=== PATIENT | female | born 1955 | race Two or more races ===

== ENCOUNTER 2024-11-19 14:32 | Outpatient (REF) | payer OTHER, SELFPAY ==
--- OUTSIDE RECORDS SUMMARY | 2024-11-19 15:44 | XMS_ITS | Data Portability ---
Author Organization [facility] Address [address] [place] [id number] Care Team Providers Care Point Of Care Specialist Name Role Phone HIM CCA OTHER Assessment Encounter Date Assessment Date Assessment LastModified by Organization Details LastModified Time 11/30/2023 11/30/2023 three prescriptions/an ti hypertensives not taken for 2-3 days vomited a few times RUQ pain, not acute intermittend headaches, an episode of dizziness on Sunday no nausea today, vomited last night at midnight anti-hypertensiv es losartan 25mg metoprolol 12.5mg once a day HCZ 25mg [email or web address] Not available 11/30/2023 12:45:57 02/29/2024 02/29/2024 As noted, we were called to see this patient regarding concerns of high blood pressure. Evaluation in the field was performed by my psychology technician colleague, as noted above, I provided real-time direction and supervision for this visit. The evaluation revealed improved blood pressure. Impression: 68yo/f with multiple medical problems as above including HTN on multiple agents, recently discharged from hospital after knee fracture, referred for evaluation due to elevated BP today. Seen by medic in home, patient and family report that patient had elevated BP reading today, reportedly 180/100 prior to receiving her morning BP medication. Was given home BP medication, medic visit activated for recheck. For medic in home patient is awake, alert, in no distress. Home with family. They state patient is in her usual state of health. States she's perfect . Patient had mild headache earlier today that is currently improved. No associated neurologic symptoms of numbness/weaknes s/paresthesias, vision changes, speech changes. No associated chest pain, dyspnea, abdominal pain, fevers. No other systemic symptoms of illness at this time. They deny other ROS. Patient and family not BP is improved at this time, 168/80 for medic in home. They feel patient is safe to remain at home and feel comfortable continuing to observe symptoms and reach out immediately with any acute worsening or change in symptoms. Plan: Continued monitoring at home with family Primary care, consider home BP cuff and monitoring Disposition: We discussed the diagnostic uncertainty of home visits and the risk associated with this. In this case, the patient and I felt this to be an acceptable and reasonable amount of risk given the benefit of avoiding an ED visit. We discussed the need to seek care urgently/emergen tly in the setting of any new or worsening serious symptoms, particularly any acute worsening or change in symptoms. [email or web address] Not available 02/29/2024 13:33:13 Plan of Treatment Reminders Order Date Submit Date Provider Last Modified By Organization Details Last Modified Time Details Appointments None recorded. Lab None recorded. Referral None recorded. Procedures None recorded. Surgeries None recorded. Imaging None recorded. Medication Orders losartan 25 mg tablet 2023 024 [place] [facility][id number], [address], [place], [id number], 4 12:46:02 hydrochloro thiazide 25 mg tablet 2023 024 [place] [facility][id number], [address], [place], [id number], 4 12:46:04 metoprolol tartrate 25 mg tablet 2023 024 [place] [facility][id number], [address], [place], [id number], 12:46:03 Patient TargetsNo targets recorded. Patient InstructionsNo instructions recorded. Reason for Referral None Reported. Medical Equipment None Reported. Allergies Allergen ID Allergen Name Allergen Category Reaction Reaction Severity Criticality Documentation Date Start Date Code Code System Note Provider Name and Address Organization Details Recorded Time 9685 Product containin g penicilli n (product) medicatio n Not available Not available Not available 05/13/2024 27312 8001 SNOMED Not Available [facility] - production 03:37:31 Medications Name Sig Start Date Stop Date Status Note LastModified by Organization Details LastModified Time delivery fee active Not Available Not Available Not Available celecoxib 200 mg capsule active Not Available Not Available N ot Available latanoprost 0.005 % eye drops active Not Available Not Available Not Available trazodone 50 mg tablet active Not Available Not Available Not Available cefpodoxime 100 mg tablet TAKE 1 TABLET BY MOUTH TWICE DAILY active Not Available Not Available No t Available FreeStyle Lancets 28 gauge active Not Available Not Available Not Available ondansetron HCl 4 mg tablet active Not Available Not Available Not Available melatonin 3 mg tablet active Not Available Not Available Not Available acetaminophen 300 mg-codeine 30 mg tablet active Not Available Not Available Not Available aspirin 81 mg tablet,delayed release active Not Available Not Available Not Available losartan 100 mg-hydrochlorot hiazide 25 mg tablet active Not Available Not Available Not Available prednisolone acetate 1 % eye drops,suspensio n active Not Available Not Available Not Available propranolol ER 80 mg capsule,24 hr,extended release active Not Available Not Available Not Available losartan 25 mg tablet Take 1 tablet every day by oral route for 5 days. active Not Available Not Available No t Available omeprazole 20 mg capsule,delayed release active Not Available Not Available Not Available dorzolamide 22.3 mg-timolol 6.8 mg/mL eye drops active Not Available Not Available Not Available montelukast 10 mg tablet active Not Available Not Available No t Available bisacodyl 5 mg tablet,delayed release active Not Available Not Available Not Available hydrochlorothia zide 25 mg tablet Take 1 tablet every day by oral route for 5 days. active Not Available Not Available No t Available loratadine 10 mg tablet active Not Available Not Available No t Available Vitamin D3 25 mcg (1,000 unit) capsule active Not Available Not Availabl e Not Available Novolog FlexPen U-100 Insulin aspart 100 unit/mL (3 mL) subcutaneous active Not Available Not Available Not Available metoprolol tartrate 25 mg tablet Take 0.5 tablets every day by oral route for 5 days. active Not Available Not Available No t Available duloxetine 30 mg capsule,delayed release active Not Available Not Available Not Available Levemir FlexPen 100 unit/mL (3 mL) solution subcutaneous insulin pen active Not Available Not Available Not Available cholecalciferol (vitamin D3) 25 mcg (1,000 unit) tablet active Not Available Not Available Not Available FreeStyle Lite Strips active Not Available Not Available Not Available Humalog KwikPen (U-100) Insulin 100 unit/mL subcutaneous active Not Available Not Available Not Available GaviLyte-G 236 gram-22.74 gram-6.74 gram-5.86 gram oral solution active Not Available Not Availabl e Not Available One Daily Multivitamins with Minerals 4.5 mg iron tablet active Not Available Not Available Not Available UltiCare Pen Needle 32 gauge x active Not Available Not Available Not Available Trulicity 1.5 mg/0.5 mL subcutaneous pen injector active Not Available Not Available Not Available Mounjaro 2.5 mg/0.5 mL subcutaneous pen injector active Not Available Not Available Not Available FreeStyle Rafita 3 Sensor device active Not Available Not Availa ble Not Available FreeStyle Rafita 3 [place] active Not Available Not Available Not Available Vitals Date Recorded Oxygen saturation Oxygen saturation in Arterial blood by Pulse oximetry Body temperature Heart rate Respiratory rate Systolic blood pressure Diastolic blood pressure Provider Name and Address Organization Details Last Updated DateTime 4 99 % 99 % 98 [degF] 79 /min 16 /min 200 mm[Hg] 100 mm[Hg] Not Available [employer] 4 13:42:16 Date Recorded Oxygen saturation Oxygen saturation in Arterial blood by Pulse oximetry Heart rate Respiratory rate Body temperature Body weight Systolic blood pressure Diastolic blood pressure Provider Name and Address Organization Details Last Updated DateTime 4 98 % 98 % 62 /min 16 /min 98.2 [degF] 81528.0 24 g 168 mm[Hg] 80 mm[Hg] Not Available [employer] 4 13:28:22 Date Recorded Body temperature Body weight Respiratory rate Oxygen saturation Oxygen saturation in Arterial blood by Pulse oximetry Heart rate Systolic blood pressure Diastolic blood pressure Provider Name and Address Organization Details Last Updated DateTime 4 98.2 [degF] 81866.9 6 g 16 /min 99 % 99 % 52 /min 180 mm[Hg] 88 mm[Hg] Not Available [employer] 4 13:28:36 Social History None recorded. Functional Status None recorded. Mental Status None recorded. Family History Nothing Reported. Medical History No medical history recorded. Gynecological HistoryNo gynecological history recorded. Obstetrics History GPAL:G 0 P 0 0 0 0 Past Encounters Encounter ID Performer Location Encounter Start Date Encounter Closed Date Diagnosis/Indication Diagnosis SNOMED-CT Code Diagnosis ICD10 Code Diagnosis Note [id number] [facility] [address] [place] [phone] 11/30/2023 12:34:20 12/01/2023 11:54:44 Essential hypertension 74088054 I10 Ms. Kayla Starks is a 68yoF w/ a PmHx of HTN who is seen today for further evaluation of elevated blood pressure readings and nausa. Ms. Starks and her daughter report that she was unable to fill her prescripti ons (out of refills) and they are working with her PCP to have her prescripti ons filled next week by her delivery service. They state that the earliest these prescripti ons will be sent is on Sunday. Ms. Starks reports that she has had some intermitte nt nausea over the past few days and vomited last night around midnight. Her blood pressure readings were elevated today for a home nurse and [facility] was called for evaluation . She currently feels well right now, and specifical ly denies chest pain, blurry vision, headache, current nausea, or any other concerns. She denies any new abdominal pain and endorses mild RUQ pain that has been chronic for her without change in quality. Vital signs with BP of 200/100s. Confirmed again asymptomat ic with no signs of hypertensi ve emergency. She is able to tolerate fluids with medic and has no nausea currently. EKG without ST elevations /depressio ns or twi. Her daughter is able to cherry picker operator prescripti ons for her today. Medication dosing confirmed with medic over the phone on most recent medication bottles. Will send in bridge prescripti ons for the weekend. 5 days of her losartan, metoprolol , HCTZ sent in to [facility]. While the etiology of her nausea and vomiting overnight are unclear, she has no focal abdominal pain, feels well currently, and is able to tolerate PO intake. Discussed strict red flags with psychology technician including recommenda tion that if her nausea/vom iting returns or worsens she should present to the ED for further evaluation . Primary team, bridging prescripti ons sent in today for the next five days given hypertensi on on site of 200s/100s. Asymptomat ic currently but would benefit from close follow up. [id number] Rene Vanessa MD [facility] - [facility] [address] [place] [phone] 02/29/2024 13:28:17 02/29/2024 20:39:14 Hypertensive disorder [id number] I10 [id number] Jack Herrera MD Main - [facility] [address] [place] [phone] 04/03/2024 13:28:30 04/03/2024 20:43:48 Agitation due to dementia 285046351 F03.911 Patient with episodes of acute-on-c hronic confusion in the setting of dementia, worsened in the evening. We were dispatched to assess for the presence of UTI. Urinalysis via dipstick did NOT confirm a diagnosis of UTI. Encouraged continued follow-up with outpatient providers. Health Concerns Section Related Observation LastModified by Organization Detai ls LastModified Time None Recorded Concern Status LastModified by Organization Details LastModified Time None Recorded Advance Directives Directive None Recorded Payers Insurance Date Sequence Insurance Name Policy Number Policy Grimm Covered Member ID Grimm Member ID Guarantor Name 04/03/2024 1 [facility] - DOS ON OR AFTER 2022 - DUAL ELIGIBLE - [facility] [employer] AND ONE [employer] (MEDICARE REPLACEMENT/ADV ANTAGE - HMO) Kayla Starks [id number] Kayla Starks Notes Date Note Type Note Provider Name and Address Organization Details Recorded Time 11/30/2023 text/html [facility] Nurse Triage Notes (Shannan Moreira): Chief Complaints: Hypertension, Nausea/Vomiting PMH: Hypertension, Diabetes, Other Allergies: Penicillin Comments: Visiting nurse saw patient today and is requesting visit for patient with N/V since yesterday. Vomited 2x since yesterday. Also member with BP of 180/110. Has not taken BP meds. Waiting for pharmacy to refill. On Losartan, Metoprolol, and HCTZ. c/o headache. No CP or SOB. Supplier Quality Engineer POC Test Results from Loren Andujar EKG (1) [13:42] EKG test performed. Reason for missing picture: See pics .................... .................... .................... .................... .................... .................... .................... . Supplier Quality Engineer Note From Con Loren: [facility] Supplier Quality Engineer Ramírez Andujar SC6 dispatched to a red for a 68 yof C/O HTN. Upon arrival, the pt was sitting in her living room, awake and alert, GARNER X4. She was in no apparent distress. She stated that her 3 HTN meds had run out 3 days prior. On day 1, she reported she had felt dizzy. She reported headaches on and off for the past 3 days, and 2 episodes of vomiting (the last of which was over 12 hrs prior). She denied MYERS, dizziness, or vomiting at that time. She denied any vision changes, paresthesias, confusion, slurred speech, and had no one sided weakness. She denied fever, cough, sore throat, CP, SOB, abd pain, diarrhea, or urinary S/S. She denied nausea at that time. She reported some RUQ pain/tenderness, which her daughter reported as her baseline. C consulted; pt was given rx for 5 days of her losartan, metoprolol, and HCTZ, w/ instructions to follow up w/ PCP for refills. EKG acquired; unremarkable/nondiag nostic. Pt and her daughter agreed and verbalized understanding. Red flags discussed at length. .................... .................... .................... .................... .................... .................... .................... . Disposition: Bethel Cartwright MD [address] [facility],[address], [place], [phone], [place] [facility] [employer] 11/30/2023 14:40:20 02/29/2024 text/html [facility] Nurse Triage Notes (Chandni Lincoln): Reason For Request: HTN Chief Complaints: Hypertension PMH: Hypertension, Diabetes, COPD/Asthma, Severe Dementia Allergies: Penicillin Comments: Members VNA calling in to place a referral, member identified via name and . PMHx HTN, DM, GERD, asthma, cardiomegaly and dementia. ALLERGIES- PCN. Member who was discharged from the hospital yesterday s/p left knee fracture. During this mornings visit, member had a BP 180/100, however, had not taken her daily losartan 25mg, nurse administered after BP reading. Member denies chest pain, no sob, no arm or jaw pain, no n/v, no change in vision, but reports a slight headache. Member agreeable to an [facility] visit for post medication BP check. .................... .................... .................... .................... .................... .................... .................... . Supplier Quality Engineer Note From Sheng Tolentino: Pt VN called due to elevated BP this morning prior to taking BP meds. Pt given meds. Appt made for eval. Pt sts has slight headache but no other complaints. Pt denies cp sob fever dizziness or NVd. Baseline vitals assessed. Vitals stable. C contacted and advised to monitor BP. Advised can take extra dose of losartin if BP remains elevated. Pt education on signs indicating the ER. Pt advised to follow up with pcp. Supplier Quality Engineer Allergies: Penicillin .................... .................... .................... .................... .................... .................... .................... . Disposition: Fulfilled Rene Vanessa MD [address] [place] [address],[address], [place], [phone], [facility] 02/29/2024 13:36:04 04/03/2024 text/html [facility] Nurse Triage Notes (Adam Brito): Chief Complaints: UTI/Pyelonephritis, Altered Mental Status PMH: Hypertension, Diabetes, COPD/Asthma, Severe Dementia Allergies: Penicillin Comments: [employer] verified the member's name//address and phone number. Mbr's EDU Koroma from [employer] calling in visit request for mbr. Mbr reportedly having frequent urination and change in mental status for approx 3 days. Mbr is reportedly confused between day and night time. Education provided on the response time and the member was advised to monitor reported s/s and seek emergency treatment if needed -Taylor Brito RN Supplier Quality Engineer Organization Information for Sheng Tolentino [employer] Legal Name: [facility] Address: [address] [place] [address] Cargo Services Coordinator: Alex Camejo MD [facility] No.: [id number] Supplier Quality Engineer POC Test Results from Sheng Tolentino Urine Dipstick (13:18:16) Urine leukocytes: NR Urine nitrites: NR Urine urobilinogen: 0.2(3.5) URO Urine protein: 300(3.0) PRO Urine pH: 6 pH Urine blood: NR Urine specific gravity: 1.020 SG Urine ketones: NR Urine bilirubin: NR Urine glucose: NR .................... .................... .................... .................... .................... .................... .................... . Supplier Quality Engineer Note From Gregg Tolentinoy: Pt daughter concerned for possible uti due to increased behavior changes/aggressive in the evening. Pt does have dementia. Pt denies painful urination, abdominal pain, flank pain or frequency fever, NVD, headache, dizziness. cp or sob. Baseline vitals assessed, abdomen benign, afebrile, urine dip unremarkable, urine clear. C contacted and advised to follow up with pcp. Education provided on signs indicating the ER. Supplier Quality Engineer Allergies: Penicillin .................... .................... .................... .................... .................... .................... .................... . Disposition: Fulfilled Jack Herrera MD [address] [facility],[address], [place], [address], [facility] [facility] [employer] 04/03/2024 17:08:13 OBGyn Episode No OBEpisode recorded.
[2024-11-19 15:45] LABS: Estimated Average Glucose 148 mg/dL; Hemoglobin A1C 171.3719 umol/L; Hemoglobin A1c % 6.8 % (<6.0); Total Hemoglobin (HGBA1C) 3371.1237 umol/L
--- OUTSIDE RECORDS SUMMARY | 2024-11-19 15:45 | XMS_ITS | Clinical Summary ---
Author Organization [facility] [address] [facility] Address [address] [place] [address] Phone Care Team Providers Care Hyperion Developer Name Role Phone Roe Pino MD Primary Care Provider [phone] Allergies Active Allergy Reactions Criticality Noted Date Comments Penicillins Rash 03/14/2010 Medications acetaminophen (TYLENOL) 325 mg tablet Take 2 Tablets by mouth every 6 hours as needed. Active acetaminophen-c odeine (TYLENOL #3) 300-30 mg per tablet Take 1 Tablet by mouth every 12 hours as needed for Pain for up to 10 days. 11/08/19 24 Active albuterol HFA (PROAIR HFA ; PROVENTIL HFA ; VENTOLIN HFA) 90 mcg/actuation inhaler Inhale 2 puffs into the lungs every 6 (six) hours as needed for wheezing. Active celecoxib (CeleBREX) 200 mg capsule Take 1 Capsule by mouth daily as needed for Pain. 03/21/20 24 Active fluticasone propionate (FLONASE) 50 mcg/actuation nasal spray spray/apply 1 spray in each nostril daily. Active glucagon (Baqsimi) 3 mg/actuation nasal spray 1 Dose by Nasal route as needed for Other (low blood sugar). 01/29/20 24 Active insulin aspart (NovoLOG Flexpen U-100 Insulin) 100 unit/mL (3 mL) injection pen Inject 2-7 Units into the skin 3 times daily (with meals). Inject three times a day with meals per scale : 100-150: 1 units; 151-200: 2 units; 201-250: 3 units; 251-300: 4 units; 301-350: 5 units; 351-400: 6 units 01/29/20 Active latanoprost (XALATAN) 0.005 % ophthalmic solution Place 1 Drop into both eyes at bedtime. Active naproxen (NAPROSYN) 500 mg tablet Take 1 Tab by mouth 2 times daily (with meals). 04/29/20 19 Active triamcinolone (KENALOG) 0.1 % cream Apply thin layer to affected area two times a day for up to two weeks 12/24/19 Active tiZANidine (ZANAFLEX) 4 mg tablet Take 1 tablet by mouth daily as needed (Headache) for up to 30 days. 06/29/20 Active cholecalciferol (VITAMIN D-3) 25 mcg (1,000 unit) tablet Take 1,000 Units by mouth daily. Active FREESTYLE LANCETS MISC 1 Device by Does not apply route 3 times daily. 09/26/19 24 Active fluticasone furoate (Arnuity Ellipta) 100 mcg/actuation blister with device inhaler Inhale?int o the lungs. Active cyclobenzaprine (FLEXERIL) 5 mg tablet Take 1 Tablet by mouth daily as needed for Muscle spasms. 10/27/19 22 Active multivitamin (MULTIPLE VITAMINS ORAL) Take 1 Tablet by mouth daily. Active incontinence pad, liner, disp pad 1 Each by Does not apply route daily. 03/03/20 24 Active blood-glucose sensor (FREESTYLE RAFITA 3 PLUS SENSOR [facility] [place] 1 Device by Does not apply route every 14 days. 04/03/20 24 Active blood-glucose meter,continuou s (FreeStyle Rafita 3 [place] [facility] [place] TO CHECK BLOOD SUGAR DIRECTED. 11/07/19 24 Active DICLOFENAC SODIUM ORAL Apply 1 g topically 4 times daily as needed (KNEE PAIN). 06/29/20 21 Active nutren 2.0 liquid Take 100 mL by mouth 2 times daily. 03/05/20 24 Active pen needle, diabetic 31 gauge x 1/4 needle USE TO INJECT INSULIN 4 TIMES DAILY. 03/21/20 24 Active melatonin-pyrid oxine HCl, B6, 10-10 mg tablet, IR and ER, biphasic TAKE 1 TABLET BY MOUTH DAILY. 30 tablet 2 06/11/20 24 Active blood sugar diagnostic (FreeStyle Lite Strips) test strip USE TO TEST BLOOD SUGAR 3 TIMES DAILY. 100 strip 5 06/11/20 24 Active melatonin 10 mg capsule Take 1 capsule (10 mg total) by mouth 1 (one) time each day. Take 10 mg by mouth daily. 90 capsule 3 07/30/19 25 Active montelukast (SINGULAIR) 10 mg tablet Take 1 tablet (10 mg total) by mouth at bedtime. Take 1 Tablet by mouth at bedtime. 90 tablet 3 07/30/19 25 Active metoprolol tartrate (LOPRESSOR) 25 mg tablet Take 0.5 tablets (12.5 mg total) by mouth 2 (two) times a day. Take half tablet p.o. twice a day. 90 tablet 3 07/30/19 25 Active aspirin 81 mg chewable tablet Chew 1 tablet (81 mg total) 1 (one) time each day. Active loperamide (IMODIUM A-D) 2 mg tablet Take 1 tablet (2 mg total) by mouth every 3 (three) hours if needed for diarrhea. 30 tablet 1 08/11/19 25 Active insulin glargine (Lantus Solostar U-100 Insulin) 100 unit/mL (3 mL) injection pen 10 units at bedtime 45 mL 11 08/13/19 25 Active BD Ultra-Fine Edna Pen Needle 32 gauge x 5/32 needle USE TO INJECT INSULIN 4 TIMES DAILY. 400 each 3 08/19/19 25 Active hydrOXYzine HCL (ATARAX) 25 mg tabletIndicatio ns:Itch Take 1 tablet (25 mg total) by mouth 3 (three) times a day if needed for itching for up to 20 days. 60 each 10/04/19 25 Active furosemide (LASIX) 20 mg tabletIndicatio ns:Left leg swelling Take 1 tablet (20 mg total) by mouth 1 (one) time each day. 30 each 11 10/04/19 25 026 Active citalopram (CeleXA) 10 mg tabletIndicatio ns:Depression, unspecified depression type Take 1 tablet by mouth at bedtime for 7 days, then increase to 2 tablets by mouth at bedtime going forward. 60 each 5 10/04/19 25 Active lisinopriL (PRINIVIL,ZESTR IL) 10 mg tabletIndicatio ns:Hypertension , unspecified type Take 1 tablet (10 mg total) by mouth 1 (one) time each day. 30 tablet 3 10/04/19 25 Active Vitamin D3 25 mcg (1,000 unit) capsule TAKE (1) CAPSULE BY MOUTH DAILY 28 capsule 1 11/05/19 25 Active omeprazole (PriLOSEC) [address] capsule TAKE (1) CAPSULE BY MOUTH DAILY 28 capsule 1 11/05/19 25 Active loratadine (CLARITIN) 10 mg tablet TAKE 1 TABLET BY MOUTH ONCE DAILY 28 tablet 1 11/05/19 25 Active omeprazole (PriLOSEC) [address] capsule Take 1 capsule (20 mg total) by mouth 1 (one) time each day. 28 capsule 2 07/30/19 25 025 Discontinued loratadine (CLARITIN) 10 mg tablet Take 1 tablet (10 mg total) by mouth 1 (one) time each day. 28 tablet 2 07/30/19 25 025 Discontinued Active Problems Problem Noted Date Diagnosed Date Essential (primary) hypertension 07/30/2024 Type 2 diabetes mellitus wit h unspecified complications ([facility] V24, [facility] V28) 07/30/2024 Other asthma 07/30/2024 Unspecified glaucoma(365.9) 07/30/2024 Other seasonal allergic rhinitis 07/30/2024 History of falling 07/30/2024 Edema 06/04/2023 Overview (05/07/2024): ON GOING Episodic cluster headache, not intractable 07/28 Myalgia 07/28/2020 Acute cystitis without hematuria 01/07/2020 Allergic rhinitis 04/30/2018 Asthma 04/30/2018 Hyperlipidemia 01/08/2018 Type 2 diabetes mellitus wit hout complication ([facility] V24, [facility] V28) 01/08/2018 Vitamin D deficiency 01/08/2018 Bruising 04/03/2017 GERD (gastroesophageal reflux disease) 7 Arthritis 02/29/2016 Glaucoma 02/29/2016 Osteoporosis 02/29/2016 Colon polyp 10/12/2015 Encounters Date Type Department Care Team Description 11/19/2024 [facility] [address] [address] Dulce Maria Knott [place] Request For Order(s) ([facility] Order # [id number]) 11/19/[address] [address] Dulce Maria Knott [place] Request For Order(s) ([facility] Order # [id number]) 11/11/2024 [facility] [address] [address] Roe Pino MD Vomiting 10/31/2024 [facility] [address] [address] Dulce Maria Knott [place] Request For Order(s) ([facility] Order # [id number]) 10/30/2024 [facility] [address] [address] Dulce Maria Knott [place] Request For Order(s) ([facility] Cert 10/28/24-12/26/24/) 10/22/[address] [address] Dulce Maria Knott [place] Request For Order(s) ([facility] Order # [id number]) 10/22/2024 [facility] [address] [address] Dulce Maria Knott [place] Request For Order(s) ([facility] Order # [id number]) 10/22/2024 [facility] [address] [address] Dulce Maria Knott MA Request For Order(s) ([facility] Order # [id number]) 10/20/2024 [facility] [address] [address] Janine Lebron MA faxed form (L&C) 10/16/2024 Telephone Internal Medicine [address] [address] Dulce Maria Knott [place] Request For Order(s) ([facility] Cert 06/30/24-08/28/24/) 10/07/2024 Telephone Internal Medicine [address] [address] Janine Lebron MA faxed order (L&C) 10/06/2024 Telephone Internal Medicine [address] [address] Mayra Pierson NP TESTING (MEAT PUMPER ERROR) 10/03/2024 1:00 PM EDT Office Visit Internal Medicine [address] [phone] Mayra Pierson NP Itch (Primary Dx); Left leg swelling; Hypertension, unspecified type; Depression, unspecified depression type; Memory loss 10/03/2024 Telephone Internal Medicine [address] [phone] Hugh De La Rosa MA Referral 10/03/2024 Telephone Internal Medicine [address] [address] Mayra Pierson NP Medical supply 10/03/2024 Telephone Internal Medicine [address] [address] Janine Lebron MA Form (RMV) 10/03/2024 Telephone Internal Medicine [address] [address] Roe Pino MD Form: DMV 10/03/2024 Telephone Internal Medicine [address] [address] Roe Pino MD Form: Social Security 09/23/2024 Telephone Internal Medicine [address] [address] Dulce Maria Knott [place] Request For Order(s) ([facility] Cert 08/29/24-10/27/24/) 09/23/2024 [facility] [address] [phone] Dulce Maria Knott MA Request For Order(s) ([facility] Order # [id number]) 09/18/2024 [facility] [address] [phone] Roe Pino MD 09/11/2024 [facility] [address] [phone] Roe Pino MD Faxed form 09/09/[address] [phone] Roe Pino MD Joseph: Health proxy 09/03/2024 10:30 AM EST Telemedicine Internal Medicine [address] [phone] Roe Pino MD Pedal edema (Primary Dx); Anxiety; Diabetes mellitus due to underlying condition without complication, without long-term current use of insulin (CMS/HCC V24, CMS/HCC V28) 09/03/2024 [facility] [address] [address] Roe Pino MD Faxed form 09/02/2024 [facility] [address] [phone] Roe Pino MD Depression 08/25/2024 [facility] [address] [phone] Dulce Maria Knott [place] Request For Order(s) ([facility] Order # [id number]) from Last 3 Months Immunizations Name Administration Dates Next Due Hepatitis B (Ttlvggv-A-Cphbt , Recombivax HB-Adult) 19yo and older 07/17/2019,06/10/2019 Influenza trivalent, 0.5mL (Fluad) 65yo and olde r 05/20/2019 Pneumococcal polysaccharide 23 valent (Pneumovax 23) 2yo and older 03/10/2015 Surgical History Surgery Date Site/Laterality Comments WRIST SURGERY PROCEDURE: HISTORICAL WRIST SURGERY; COMMENT: ganglion removal TUBAL LIGATION PROCEDURE: HISTORICAL TUBAL LIGATION Medical History Medical History Date Comments Allergic rhinitis 04/30/2018 DX:Allergic rh initis Arthritis 02/29/2016 DX:Arthritis Asthma 04/30/2018 DX:Asthma Colon polyp 10/12/2015 DX:Colon polyp GERD (gastroesophageal reflux disease) 11/13/2016 DX:GERD (gastroesophageal reflux disease) Glaucoma 02/29/2016 DX:Glaucoma Hyperlipidemia 01/08/2018 DX:Hyperlipidemi a Osteoporosis 02/29/2016 DX:Osteoporosis Type 2 diabetes mellitus wit hout complication ([facility] V24, [facility] V28) 01/08/2018 DX:Type 2 diabetes mellitus without complication ([facility]) Vitamin D deficiency 01/08/2018 DX:Vitamin D deficiency Hypertension Dementia ([facility] V24, [facility] V28) about two years, worsening since october Social History Tobacco Use Types Packs/Day Years Used Date Smoking Tobacco: Former Smokeless Tobacco: Former Alcohol Use Standard Drinks/Week Comments Never 0 (1 standard drink = 0.6 oz pur e alcohol) Comments Unknown Sex and Gender Information Value Date Recorded Sex Assigned at Female 05/27/2024 8:14 AM EST Legal Sex Female 2:32 PM EST Gender Identity Female 05/27/2024 8:14 AM EST Sexual Orientation Choose not to disclose 2023 8:14 AM EST Obstetrics History Last Filed Vital Signs Vital Sign Reading Time Taken Comments Blood Pressure 190/80 10/03/2024 1:27 PM EDT Pulse 50 10/03/2024 1:25 PM EDT Temperature 36.3 ??C (97.3 ??F) 10/03/2024 1:25 PM ED T Respiratory Rate 20 05/27/2024 7:25 AM EST Oxygen Saturation 98% 10/03/2024 1:25 PM EDT Inhaled Oxygen Concentration - - Weight 58.9 kg (129 lb 12.8 oz) 10/03/2024 1:25 PM EDT Height 147.3 cm (4' 10 ) 10/03/2024 1:25 PM EDT Body Mass Index 27.13 10/03/2024 1:25 PM EDT Plan of Treatment Health Maintenance Due Date Last Done Comments Diabetes: Annual Foot Exam 1963 Diabetes: Annual Retina Eye Exam 1963 Zoster Vaccines (1 of 2) 2003 RSV Immunization Adult Patients (1 - Risk 60-74 years 1-dose series) 2013 Pneumococcal Vaccine: 50+ Years (2 of 2 - PCV) 03/10/2016 03/10/2015 Hepatitis B Vaccines (3 of 3 - 19+ 3-dose series) 12/09/2019 07/17/2019, 06/10/2019 Depression Screening 06/14/2022 Falls Risk Assessment 06/14/2022 Osteoporosis Screening (Bone Density Screening) 06/14/2022 Social Influencers of Health Screening 06/14/2022 Diabetes: Annual Urine Albumin-Creatinine Ratio (uACR) 06/30/2022 Breast Cancer Screening 07/03/2023 07/03/20, 09/09/2018 COVID-19 Vaccine ( - 2023-2 5 season) 2024 Diabetes: Blood Sugar Contro l Test (HGBA1C) 11/04/2024 05/06/2024, 05/06/2024 Influenza Vaccine (Season Ended) 2025 05/20/2019 Diabetes: Annual GFR (Glomerular Filtration Rate) 05/06/2025 05/06/2024, 05/06/2024 Hypertension/CHF/CAD Annual BMP Blood Test 05/06/2025 05/06/2024, 05/06/2024 Colorectal Cancer Screening: Colonoscopy 07/25/2026 07/25/2016 Cholesterol Screening (Lipid Panel) 09/16/2028 09/17/2023 DTaP,Tdap,and Td Vaccines (2 - Td or Tdap) 02/21/2034 02/22/2024 Hepatitis C Screening Completed 05/20/2019 Medicare Annual Wellness Visit Discontinued 03/06/2023 HIB Vaccines Aged Out No longer eligi ble based on patient's age to complete this topic HPV Vaccines Aged Out No longer eligi ble based on patient's age to complete this topic Hepatitis A Vaccines Aged Out No long er eligible based on patient's age to complete this topic IPV Vaccines Aged Out No longer eligi ble based on patient's age to complete this topic MMR Vaccines Aged Out No longer eligi ble based on patient's age to complete this topic Meningococcal ACWY Vaccine Aged Out N o longer eligible based on patient's age to complete this topic Meningococcal B Vaccine Aged Out No l onger eligible based on patient's age to complete this topic RSV Immunization Patients Under 20 months Aged Out No longer eligible based on patient's age to complete this topic Varicella Vaccines Aged Out No longer eligible based on patient's age to complete this topic Procedures Procedure Name Priority Date/Time Associated Diagnosis Comments ANNUAL BMP BLOOD TEST Routine 05/06/2024 HEMOGLOBIN A1C Routine 05/06/2024 LIPID PANEL Routine 09/17/2023 [facility] SCREENING DIGITAL Routine 07/03/2021 8:03 AM EST Encounter for screening mammogram for malignant neoplasm of breast HEPATITIS C SCREENING Routine 05/20/2019 COLONOSCOPY Routine 07/25/2016 from Last 3 Months or Most Recently Relevant to Health Maintenance Results * Annual BMP Blood Test (05/06/2024) Pathologist [facility] Annual BMP Blood Test Abstracted Historical Provider HEALTH MAINTENANCE Final Result * Hemoglobin A1c (05/06/2024) Pathologist [facility] Hemoglobin A1C 5.8 <=6.5 % Blood Venous blood specimen / Unknown us Historical Provider LAB BLOOD ORDERABLES Stefanie l Result * (ABNORMAL) Lipid panel (09/17/2023) Pathologist [facility] LDL/HDL Ratio 5(A) 0 - 4 Triglycerides 292(A) 0 - 150 mg/dL Cholesterol 205(A) 0 - 200 mg/dL HDL 46 >=40 mg/dL LDL Cholesterol 101(A) 0 - 100 mg/dL Blood Venous blood specimen / Unknown us Historical Provider LAB BLOOD ORDERABLES Stefanie ash Result * JOAQUIN SCREENING DIGITAL (07/03/2021 8:03 AM EST) Anatomical Region Laterality Modality Mammography 07/01/2021 3:46 PM EST Narrative 07/03/2021 8:03 AM EST [facility] Diagnostic Imaging Department [address] [place] [address] Patient: ??KAYLA STARKS ?/Age/Sex: 1955 - 66 - F Unit#: ??[id number] ? Location/Status: ??SPDIMAM/REG CLI ? Mnemonic/Ordering Site: ??DIGSC/SPMAM Ordering Physician: ??ROE PINO MD [facility] Screening Digital - 07/01/21 - 1620 INDICATION: SCREENING COMPARISON: [facility] mammograms dating back to ?? 04/02/2014 TECHNIQUE: CC and MLO views of the breasts were obtained, using full field digital mammography with 3D tomosynthesis views in the MLO projection. Computer aided detection with the [email or web address] 7.2-H was employed. FINDINGS: The breasts contain scattered fibroglandular tissues. No suspicious masses, suspicious microcalcifications, or areas of architectural distortion are identified. ??There are no secondary signs of breast malignancy. Rare benign-appearing breast and vascular type calcifications are present bilaterally IMPRESSION: ??No specific mammographic evidence of breast malignancy. Lack of an imaging correlate should not deter or delay biopsy of a clinically significant palpable finding. BI-RADS ??- Category 2 - Benign finding 3342F, 7025F Annual screening mammography is recommended. Patient entered into a reminder system with a target date for the next mammogram. (G0202 / [id number]) , ??[id number] Dictating Physician: ??STEFANIA AGUILERA MD Electronically Signed by: ??STEFANIA AGUILERA MD Dic Date/Time: ??07/03/21800 Sign date/Time: ??07/03/21802 Procedure Note Stefania Aguilera MD - 07/05/2022 [facility] Diagnostic Imaging Department [address] [place] [address] Patient: KAYLA STARKS Hortencia /Age/Sex: 1955 - 66 - F Unit#: [id number] Location/Status: [facility] Mnemonic/Ordering Site: [facility] Ordering Physician: ROE PINO MD [facility] Screening Digital - 07/01/21 - 1619 INDICATION: SCREENING COMPARISON: [facility] mammograms dating back to 04/02/2014 TECHNIQUE: CC and MLO views of the breasts were obtained, using full field digital mammography with 3D tomosynthesis views in the MLO projection. Computer aided detection with the [employer] 7.2-H was employed. FINDINGS: The breasts contain scattered fibroglandular tissues. No suspicious masses, suspicious microcalcifications, or areas ofarchitectural distortion are identified. There are no secondary signs of breastmalignancy. Rare benign-appearing breast and vascular type calcifications arepresent bilaterally IMPRESSION: No specific mammographic evidence of breast malignancy. Lack of an imaging correlate should not deter or delay biopsy of aclinically significant palpable finding. BI-RADS - Category 2 - Benign finding 3342F, 7025F Annual screening mammography is recommended. Patient entered into a reminder system with a target date for the next mammogram. [id number] / [id number]) , [id number] Dictating Physician: STEFANIA AGUILERA MD Electronically Signed by: STEFANIA AGUILERA MD Dic Date/Time: 07/03/21800 Sign date/Time: 07/03/21 08 Roe Pino MD IMG BI PROCEDURES Final Result * Hepatitis C Screening (05/20/2019) Hepatitis C Screening Abstracted Historical Provider HEALTH MAINTENANCE Final Result * Colonoscopy (07/25/2016) Colonoscopy No interpretation with ,abstracted Anatomical Region Laterality Modality Other Historical Provider HEALTH MAINTENANCE Final Result from Last 3 Months or Most Recently Relevant to Health Maintenance Insurance [facility] Member Subscriber Plan / Payer (Ef fective 2020-Present) Name:Kayla Starks Relation to Subscriber:Self Name:Kayla Starks Payer ID:[id number] Group ID:[id number] Type:Not on file Address: [facility] [address] [address] Care Teams Hyperion Developer Relationship Specialty Start Date End Date Roe Pino MD [address] [place] [phone] (work) PCP - General Internal Medicine 08/06/24
--- OUTSIDE RECORDS SUMMARY | 2024-11-19 15:45 | XMS_ITS | Clinical Summary ---
Author Organization [employer] [facility] Address [address] [place] [address] Care Team Providers Care Newspaper Inserter Name Role Phone Roe Pino MD Primary Care Provider Unavailab le Allergies Active Allergy Reactions Criticality Noted Date Comments Penicillins 03/15/2017 Medications Medication Sig Dispensed Refills Start Date End Date Status alendronate (FOSAMAX) tablet 70 mg Take 70 mg by mouth every 7 days. Take with water on empty stomach/Nothing by mouth and do not lie down for next 30 minutes 0 Active aspirin 81 MG tablet Take 81 mg by mouth daily. 0 Active Candesartan Cilexetil-HCTZ 32-25 MG TABS Take by mouth daily. 0 Active cholecalciferol (VITAMIN D3) 1000 UNITS tablet Take 1,000 Units by mouth daily. 0 Active fluticasone (FLONASE) 50 MCG/ACT nasal spray spray/apply 1 spray in each nostril daily. 0 Active gabapentin (NEURONTIN) 300 MG capsule Take 300 mg by mouth 3 (three) times a day. 0 Active insulin lispro (HUMALOG KWIKPEN) injection 100 units/mL Inject under the skin. 0 Active meclizine (ANTIVERT) 25 MG tablet Take 25 mg by mouth 3 (three) times a day as needed. 0 Active omeprazole (PRILOSEC) 20 MG capsule Take 20 mg by mouth daily. 0 Active albuterol (PROVENTIL HFA) 108 (90 BASE) MCG/ACT inhaler Inhale 2 puffs into the lungs every 6 (six) hours as needed for wheezing. 0 Active beclomethasone dipropionate (QVAR) 40 MCG/ACT inhaler Inhale into the lungs. 0 Active acetaminophen (TYLENOL 8 HOUR) 650 MG CR tablet Take 650 mg by mouth every 8 (eight) hours as needed for pain. 0 Active diclofenac (VOLTAREN) 50 MG EC tablet Take 50 mg by mouth 2 (two) times a day. 0 Active insulin detemir (LEVEMIR FLEXPEN) injection 100 units/mL Inject under the skin. 0 Active Active Problems Problem Noted Date Diagnosed Date Bruising 04/03/2017 Social History Tobacco Use Types Packs/Day Years Used Date Smoking Tobacco: Former Smokeless Tobacco: Never Alcohol Use Standard Drinks/Week Comments No 0 (1 standard drink = 0.6 oz pur e alcohol) Sex and Gender Information Value Date Recorded Sex Assigned at Not on file Gender Identity Not on file Sexual Orientation Not on file Last Filed Vital Signs Vital Sign Reading Time Taken Comments Blood Pressure 148/90 03/15/2017 2:12 PM EDT Pulse 92 03/15/2017 2:12 PM EDT Temperature - - Respiratory Rate - - Oxygen Saturation - - Inhaled Oxygen Concentration - - Weight 70.3 kg (155 lb) 03/15/2017 2:12 PM EDT Height 144.8 cm (4' 9 ) 03/15/2017 2:12 PM EDT Body Mass Index 33.54 03/15/2017 2:12 PM EDT Plan of Treatment Health Maintenance Due Date Last Done Comments Hepatitis C Screening 1955 COVID-19 Vaccine (#1) 1955 Depression Screening 1965 Preventative Health Evaluation 1971 DTap / Tdap / Td (1 - Tdap) 1972 Colon Cancer Screening (Colonoscopy) 1998 Breast Cancer Screening (Mammogram) 2003 Shingrix-Zoster Vaccine (1 of 2) 2003 Fall Risk Assessment 2018 Osteoporosis Screening (DEXA Scan) 2018 Pneumococcal Vaccine (1 of 1 - PCV) 2018 Influenza Vaccine (#1) 2024 RSV Adult > 60+ Yrs or Pregn ant (1 - 1-dose 75+ series) 2028 Hepatitis B Vaccines Aged Out No long er eligible based on patient's age to complete this topic RSV Ped < 20 months Aged Out No longe r eligible based on patient's age to complete this topic Care Teams Newspaper Inserter Relationship Specialty Start Date End Date Roe Pino MD PCP - General Internal Medicine 05/14/24
--- OUTSIDE RECORDS SUMMARY | 2024-11-19 15:45 | XMS_ITS | Encounter Summary ---
Author Organization [facility] Address [address] [place] [address] Care Team Providers Care Broker Assistant Name Role Phone Roe Pino MD Primary Care Provider [phone] Reason for Visit * Reason Onset Date Comments Request For Order(s) 11/19/2024 [facility] Order # [id number] Encounter Details Date Type Department Care Team (Late st Contact Info) Description 11/19/2024 Telephone Internal Medicine - [place] [address] [facility] [address] [place] [id number] Dulce Maria Knott MA Request For Order(s) ([facility] Order # [id number]) Social History Tobacco Use Types Packs/Day Years [...] not to disclose 2023 8:14 AM EST documented as of this encounter Progress Notes * Dulce Maria Knott MA - 11/19/2024 7:49 AM EDT [facility] Order # [id number] Please sign & documented in this encounter Plan of Treatment Not on file documented as of this encounter Visit Diagnoses Not on filedocumented in this encounter Care Teams Broker Assistant Relationship Specialty Start Date End Date Roe Pino MD [address] [address] PCP - General Internal Medicine 08/06/24 documented as of this encounter
--- OUTSIDE RECORDS SUMMARY | 2024-11-19 15:45 | XMS_ITS | Encounter Summary ---
Author Organization [facility] Address [address] [place] [address] Care Team Providers Care Car Clerk Pullman Name Role Phone Roe Pino MD Primary Care Provider [phone] Reason for Visit * Reason Onset Date Comments Request For Order(s) 11/19/2024 [facility] Order # [id number] Encounter Details Date Type Department Care Team (Late st Contact Info) Description 11/19/2024 Telephone Internal Medicine - [place] [address] [facility] [address] [place] [phone] Dulce Maria Knott MA Request For Order(s) ([facility] Order # [id number]) Social History Tobacco Use Types Packs/Day Years [...] * Dulce Maria Knott MA - 11/19/2024 7:47 AM EDT [facility] Order # [id number] Please sign & documented in this encounter Plan of Treatment Not on file documented as of this encounter Visit Diagnoses Not on filedocumented in this encounter Care Teams Car Clerk Pullman Relationship Specialty Start Date End Date Roe Pino MD [address] [address] PCP - General Internal Medicine 08/06/24 documented as of this encounter
[2024-11-19 16:01] LABS: Anion Gap 11 (12-20)
[2024-11-19 16:05] LABS: Alanine Aminotransferase 11 U/L (0-31); Albumin Level 3.5 g/dL (3.5-5.0); Aspartate Amino Transferase 26 U/L (5-31); Bilirubin Total 0.4 mg/dL (0.0-1.0); Blood Urea Nitrogen 22 mg/dL (9-16); Calcium 9.2 mg/dL (8.4-10.2); Carbon Dioxide 29 mmol/L (22-29); Chloride 102 mmol/L (96-108); Estimated Glomerular Filt Rate > 60; Glucose Random 139 mg/dL (60-115); Potassium 4.2 mmol/L (3.3-5.1); Sodium 138 mmol/L (135-145); Total Protein 6.7 g/dL (6.5-8.0)
[2024-11-19 16:24] LABS: Alkaline Phosphatase 93 U/L (39-117)
[2024-11-19 16:27] LABS: TSH reflex Free T4 1.44 uIU/mL (0.32-4.0)
[2024-11-19 16:38] LABS: Folate 11.2 ng/mL (> or = 4.0); Vitamin B12 317 pg/mL (200-900)
== END 2024-11-19 14:33 | disposition home or self-care (01) ==
LOC: HO.LAB 14:32
PROVIDERS: PCP Internal Medicine; Visit Provider Psychiatry & Neurology Neurology
DX: G30.9 Alzheimer's disease, unspecified (principal); Z13.1 Encounter for screening for diabetes mellitus
CPT/HCPCS: 36415; 80053; 82607; 82746; 83036; 84443

== ENCOUNTER 2025-01-20 14:08 | Outpatient (AMB) | payer OTHER, SELFPAY ==
--- NOTE | 2025-01-20 14:11 | A.OFFVIS_ITS ---
Intake Visit Reasons: AD Allergies Penicillins Allergy (Verified 01/19/25 17:30) Unknown Medication List - Last Reconciled 01/20/25 by Jhoana Ocampo MD aspirin 81 mg PO DAILY citalopram mg PO insulin aspart U-100 subcut insulin glargine-yfgn units subcut latanoprost 0.005% drps ophthalmic (eye) loperamide (Anti-Diarrheal (loperamide)) mg PO loratadine 10 mg PO DAILY melatonin-pyridoxine HCl (B6) 10-10 mg ER PO metoprolol tartrate 25 mg PO DAILY mirtazapine 15 mg PO BEDTIME montelukast 10 mg PO DAILY omeprazole 20 mg PO DAILY ondansetron HCl 4 mg PO Q8H PRN sertraline 50 mg PO DAILY HPI Comments Details: This is a 69-year-old woman who is here with her family members who are concerned about her memory and feel that she has significant dementia.? She currently lives with her son and goes back and forth between the son and a daughter.? She's also had bouts of depression because she has lost several family members in the last few years.? She's had short-term memory problems that have been getting worse.? She still recognizes and knows the names of her family member she sees frequently.? She's had periods of agitation and confusion that increase when she is in a hospital setting.? She has a home health aide.? She no longer cooks.? Occasionally she resists bathing.? She has an eighth grade education and used to work in the tobacco field and later for retail.? She wanders inside the house but does not go out.? She has no bladder or bowel con trol problems.? She's has gait difficulty and uses a walker or a wheelchair. Labs were normal except A1c of 6.8. 12/05/24 EEG is minimally abnormal due to scattered 6-7 hertz theta slowing superimposed on a background of a posterior 9 hertz alpha frequency with low-voltage fast frequencies predominating anteriorly. 12/07/2024 MRI of the brain shows moderate atrophy particularly in the temporal lobes [facility] Medical History (Updated 01/20/25 @ 14:13 by Jhoana Ocampo MD) Arthritis GERD (gastroesophageal reflux disease) Glaucoma Depression Hypertension Type 2 diabetes mellitus Alzheimer's dementia Review of Systems Const Details: Sleep:? Difficulty getting to sleepdenies.? Difficulty maintaining sleepdenies?.? Urge to move legsdenies.? Teeth grindingdenies.? Shouting or Kicking during sleep denies.? Abnormal behavior during sleepdenies.? Excessive sleepdenies.? Snoring denies.? Daytime sleepinessdenies. ???General/Constitutional:? Change in appetitedenies.? Chillsdenies.? Fatiguedenies.? Feverdenies.? Weight gaindenies.? Weight lossdenies. ???Ophthalmologic:? Blurred visiondenies.? Diminished visual acuitydenies. ???ENT:? Stuffinessdenies.? Decreased hearingdenies.? Dry mouthdenies.? Ear paindenies.? Nosebleeddenies.? Ringing in the earsdenies.? Sinus paindenies.? Sore throat denies.? Swollen glandsdenies. ???Endocrine:? Cold intolerancedenies.? Excessive thirstdenies.? Frequent urinationdenies.? Heat intolerancedenies. ???Respiratory:? Shortness of breathdenies.? Chest paindenies.? Coughdenies. ???Breast:? Breast lumpdenies.? Nipple dischargedenies. ???Cardiovascular:? Chest pain at restdenies.? Chest pain with exertiondenies.? Claudicationdenies .? Dizzinessdenies.? Fluid accumulation in the legsdenies.? Irregular heartbeat denies.? Palpitationsdenies. ???Gastrointestinal:? Abdominal paindenies.? Constipationdenies.? Diarrheadenies.? Difficulty swallowingdenies.? Heartburndenies.? Nauseadenies.? Rectal bleedingdenies. ???Hematology:? Easy bruisingdenies.? Prolonged bleedingdenies. ???Genitourinary:? Frequent urinationdenies.? Urgencydenies.? Incontinencedenies.? Erectile Dysfunctiondenies. ???Musculoskeletal:? Neck paindenies.? Back paindenies.? Muscle achesdenies.? Painful jointsdenies.? Sciaticadenies.? Weaknessdenies. ???Podiatric:? Difficulty walkingdenies.? Foot numbnessdenies. ???Neurologic:? Difficulty swallowingdenies.? Balance difficultydenies.? Coordinationnormal.? Difficulty speakingdenies.? Dizzinessdenies.? Faintingdenies.? Gait abnormality denies.? Headachedenies.? Loss of strengthdenies.? Loss of use of extremity denies.? Low back paindenies.? Memory lossdenies.? Seizuresdenies.? Ticsdenies.? Tingling/Numbnessdenies.? Transient loss of visiondenies.? Tremordenies. ???Psychiatric:? Anxietydenies.? Auditory/visual hallucinationsdenies.? Delusionsdenies.? Dep ressed mooddenies.? Stressorsdenies.? Substance abusedenies.? Suicidal thoughts denies. Physical Exam Neuro Other: Neurological: Abnormal neurological findings:??MMS score 22/30.?Mental Status:??alert and oriented X 3,?Normal attention, orientation, memory and affect.?Cranial Nerves:??Pupils are equal, round and reactive to light. Fundoscopy shows normal disc bilaterally. External occular muscles are intact. Visual andrews are full, no ptosis. Face is symmetrical, no facial weakness or droop. Facial sensations are normal. Tongue protrudes in midline. Palate elevates symmetrically. Shoulder shrugging is normal..?Motor Examination:??Normal muscle tone, bulk and strength,?No atrophy or fasciculations,?No drift of the extended upper extremities,?Deep tendon reflexes are 2+?,?Plantars are flexor?.?Motor Strength:?Proximal Muscles (out of 5):5Distal Muscles (out of 5):5Neck Flexors (out of 5):5Neck Extensors (out of 5):5Deltoid (out of 5):5Biceps (out of 5):5 Triceps (out of 5):5Serratus Anterior (out of 5):5Wrist Extensors (out of 5):5 APB (out of 5):5Finger Spread (out of 5):5Ileopsoas (out of 5):5Quadriceps (out of 5):5Hamstrings (out of 5):5Tibialis Anterior (out of 5):5Peronei (out of 5):5 EDB (out of 5):5Gastrocnemius (out of 5):5Straight Leg Raising:??90 degrees.?Sensory Exam:??Normal light touch, temperature, pinprick, vibration and joint-position sensations?,?Rhomberg sign is absent.?Coordination:??no ataxia,?no titubation,?ouwcff-lz-ydns, cflm-ttlb-acio test and rapid alternating movements were normal.?Gait Exam:??wheelchair.?Cerebellar Signs:??Crnfpd-kk-hdqm and nkew-vw-dxjm is normal,?no dysdiadochokinesia?.?Extrapyramidal System:??No tremor, rigidity with normal facial expressions,?No bradykinesia, no bradyphrenia. Normal arm swing and posture. No propulsion or retropulsion.?Speech:??Normal,?no dysphasia or dysarthria..? Mini Mental Status Exam: Level of Consciousness:??Alert.?Orientation:??she does not know her age or?correct year, month, date, day and season. she?Knows correct city, and state. Knows correct location?.?Registration:??Able to register 3 objects.?Attention:??Serial 7's unable.?Recall:??Able to recall 0 out of 3 objects.?Language:??Normal spontaneous speech, fluency, repetition,naming, comprehension, reading and writing.?Total Score:??22/30.? General Examination: GENERAL APPEARANCE:??normal,?in no acute distress.?HEAD:??normocephalic,?atraumatic.?EYES:??sclera non- icteric,?conjunctiva clear.?EARS:??auditory canal clear,?tympanic membrane intact, clear.?NOSE:??no lesions.?ORAL CAVITY:??gums normal,?mucosa moist,?no lesions.?THROAT:??clear.?NECK/THYROID:??no cervical lymphadenopathy,?thyroid n ormal,?neck supple, full range of motion,?no carotid bruit.?SKIN:??no rashes,?no significant birthmarks.?HEART:??S1, S2 normal,?no murmurs.?LUNGS:??clear anteriorly and posteriorly.?CHEST:??no gross rib deformity,?clear to auscultation.?BACK:??normal exam of spine.?EXTREMITIES:??no edema.?PERIPHERAL PULSES:??normal.?PSYCH:??as above.? Assessment & Plan Assessment & Plan (1) Alzheimer's dementia: Code(s): G30.9 - Alzheimer's disease, unspecified; F02.80 - Dementia in other diseases classified elsewhere, unspecified severity, without behavioral disturbance, psychotic disturbance, mood disturbance, and anxiety Category: Medical Plan She has moderately advanced dementia and needs more supervision at home for her personal care and for her safety. She should get some night time supervision as well for her wandering. Will start Donepezil 5mg. If tolerated, will increase to 10mg on next visit. Medications: New donepezil 5 mg PO DAILY 30 tabs 5RF 30 days Coding Level of Care Code Est Pt Level 4 (48640) Diagnoses Alzheimer's dementia G30.9; F02.80
--- OUTSIDE RECORDS SUMMARY | 2025-01-20 14:59 | XMS_ITS | Clinical Summary ---
Author Organization [facility] [address] [facility] Address [address] [place] [address] Phone Care Team Providers Care Consulting Marine Engineer Name Role Phone Roe Pino MD Primary Care Provider [phone] Allergies Active Allergy Reactions Criticality Noted Date [...] 301-350: 5 units; 351-400: 6 units 01/29/20 24 Active latanoprost (XALATAN) 0.005 % ophthalmic solution Place 1 Drop into both eyes at bedtime. Active naproxen (NAPROSYN) 500 mg tablet Take 1 Tab by mouth 2 times daily (with meals). 04/29/20 Active triamcinolone (KENALOG) 0.1 % cream Apply [...] Ellipta) 100 mcg/actuation blister with device inhaler Inhale into the lungs. Active cyclobenzaprine (FLEXERIL) 5 mg tablet Take 1 Tablet by mouth daily as needed for Muscle spasms. 10/27/19 22 Active multivitamin (MULTIPLE VITAMINS ORAL) Take 1 Tablet by mouth daily. Active incontinence pad, liner, disp pad 1 Each by Does not apply route daily. 03/03/20 24 Active blood-glucose sensor (FREESTYLE RAFITA 3 PLUS SENSOR MISC) 1 Device by Does not apply route every 14 days. 04/03/20 24 Active blood-glucose meter,continuou s (FreeStyle Rafita 3 Gilman) mis USE TO CHECK BLOOD SUGAR DIRECTED. 11/07/19 [...] DAILY. 30 tablet 2 06/11/20 24 Active melatonin 10 mg capsule Take 1 capsule (10 mg total) by mouth 1 (one) time each day. Take 10 mg by mouth daily. 90 capsule 3 07/30/19 25 Active montelukast (SINGULAIR) 10 mg tablet Take 1 tablet (10 mg total) by mouth at bedtime. Take 1 Tablet by mouth at bedtime. 90 tablet 07/30/19 25 Active metoprolol tartrate (LOPRESSOR) 25 mg tablet Take 0.5 tablets (12.5 mg total) by mouth 2 (two) times a day. Take half tablet p.o. twice a day. 90 tablet 07/30/19 25 Active aspirin 81 mg chewable [...] pen 10 units at bedtime 45 mL 08/13/19 25 Active BD Ultra-Fine Edna Pen Needle 32 gauge x 32 needle USE TO INJECT INSULIN 4 TIMES [...] 1 (one) time each day. 30 each 10/04/19 25 026 Active citalopram (CeleXA) 10 mg tabletIndicatio ns:Depression, unspecified depression type Take 1 tablet by mouth at bedtime for 7 days, then increase to 2 tablets by mouth at bedtime going forward. 60 each 5 10/04/19 25 Active loratadine (CLARITIN) 10 mg tablet TAKE 1 TABLET BY MOUTH ONCE DAILY 28 tablet 1 11/05/19 25 Active lisinopriL (PRINIVIL,ZESTR IL) 10 mg tabletIndicatio ns:Hypertension , unspecified type TAKE 1 TABLET BY MOUTH ONCE DAILY 30 tablet 12/28/19 25 Active Vitamin D3 25 mcg (1,000 unit) capsule TAKE (1) CAPSULE BY MOUTH DAILY 28 capsule 12/28/19 25 Active omeprazole (PriLOSEC) [address] capsule TAKE (1) CAPSULE BY MOUTH DAILY 28 capsule 12/28/19 25 Active blood sugar diagnostic (FreeStyle Lite Strips) test strip USE TO TEST BLOOD SUGAR 3 TIMES DAILY. 100 strip 5 12/26/19 25 Active blood sugar diagnostic (FreeStyle Lite Strips) test strip USE TO TEST BLOOD SUGAR 3 TIMES DAILY. 100 strip 5 06/11/20 24 025 Discontinued lisinopriL (PRINIVIL,ZESTR IL) 10 mg tabletIndicatio ns:Hypertension , unspecified type Take 1 tablet (10 mg total) by mouth 1 (one) time each day. 30 tablet 3 10/04/19 25 025 Discontinued Vitamin D3 25 mcg (1,000 unit) capsule TAKE (1) CAPSULE BY MOUTH DAILY 28 capsule 1 11/05/19 25 025 Discontinued omeprazole (PriLOSEC) [address] capsule TAKE (1) CAPSULE BY MOUTH DAILY 28 capsule 1 11/05/19 25 025 Discontinued Active Problems Problem Noted Date Diagnosed Date Essential (primary) hypertension 07/30/2024 Type 2 diabetes mellitus wit h unspecified complications ([facility] V24, [facility] V28) 07/30/2024 Other asthma 07/30/2024 Unspecified glaucoma(365.9) 07/30/2024 Other seasonal allergic rhinitis 07/30/2024 History of falling 07/30/2024 Edema 06/04/2023 Overview (05/07/2024): ON GOING Episodic cluster headache, not intractable 07/28 Myalgia 07/28/2020 Acute cystitis without hematuria 01/07/2020 Allergic rhinitis 04/30/2018 Asthma 04/30/2018 Hyperlipidemia 01/08/2018 Type 2 diabetes mellitus wit hout complication ([facility] V24, [facility] V28) 01/08/2018 Vitamin D deficiency 01/08/2018 Bruising 04/03/2017 GERD (gastroesophageal reflux disease) 7 Arthritis 02/29/2016 Glaucoma 02/29/2016 Osteoporosis 02/29/2016 Colon polyp 10/12/2015 Encounters Date Type Department Care Team Description 01/15/2025 [place] [facility] [address] [address] Dulce Maria Knott [place] Request For Order(s) ([facility] Cert 12/27/24-02/24/25/) 01/13/2025 [place] [facility] [address] [address] Dulce Maria Knott [place] Request For Order(s) ([facility] Order # [id number]) 01/05/2025 [place] [facility] [address] [address] Roe Pino MD Hospital Follow-up 12/31/2024 [place] [facility] [address] [address] Dulce Maria Knott MA Request For Order(s) ([facility] Order # Transfer Summary) 12/30/2024 [place] [facility] [address] [address] Dulce Maria Knott MA Request For Order(s) ([facility] Order # [id number]) 12/30/2024 [place] [facility] [address] [address] Dulce Maria Knott MA Request For Order(s) ([facility] Order # [id number]) 12/24/2024 [place] [facility] [address] [address] Dulce Maria Knott MA Request For Order(s) ([facility] Order # [id number]) 12/16/2024 [place] [facility] [address] [address] Dulce Maria Knott MA Request For Order(s) ([facility] Order # [id number]) 12/10/2024 6:19 PM EDT - 12/10/2024 11:59 PM EDT Hospital [facility] [address] [place] [address] Alzheimer's disease, unspecified (CODE) ([facility] V24, [facility] V28) Discharge Disposition: Home or Self Care 11/28/2024 Telephone Internal Medicine [address] [address] Janine Lebron [place] faxed order (L&C) 11/19/2024 [place] [facility] [address] [address] Dulce Maria Knott [place] Request For Order(s) ([facility] Order # [id number]) 11/19/2024 Telephone Internal Medicine [address] [address] Dulce Maria Knott MA Request For Order(s) ([facility] Order # [id number]) 11/11/2024 Tele[place] Internal [address] [address] Roe Pino MD Vomiting 10/31/2024 [place] [facility] [address] [address] Dulce Maria Knott MA Request For Order(s) ([facility] Order # [id number]) 10/30/2024 [place] Internal [address] [address] Dulce Maria Knott MA Request For Order(s) ([facility] Cert 10/28/24-12/26/24/) 10/22/2024 [place] [facility] [address] [address] Dulce Maria Knott MA Request For Order(s) ([facility] Order # [id number]) 10/22/2024 Telephone Internal Medicine - [place] [address] [address] Dulce Maria Knott [place] Request For Order(s) ([facility] Order # [id number]) 10/22/2024 Telephone Internal Medicine - [place] 175 [facility] [address] [place] [address] Dulce Maria Knott MA Request For Order(s) ([facility] Order # [id number]) from Last 3 Months Immunizations Name Administration Dates Next Due Hepatitis B (Fbgegrx-P-Imozn , Recombivax HB-Adult) 19yo and older 07/17/2019,06/10/2019 [...] Type 2 diabetes mellitus wit hout complication ([facility] V24, [facility] V28) 01/08/2018 DX:Type 2 diabetes mellitus without complication (HCC) Vitamin D deficiency 01/08/2018 DX:Vitamin D deficiency Hypertension Dementia ([facility] V24, [facility] V28) about two years, worsening since october [...] 50 10/03/2024 1:25 PM EDT Temperature 36.3 C (97.3 F) 10/03/2024 1:25 PM EDT Respiratory Rate 20 05/27/2024 7:25 AM EST Oxygen Saturation 98% 10/03/2024 1:25 PM EDT Inhaled Oxygen Concentration - - Weight 58.9 kg (129 lb 12.8 oz) 10/03/2024 1:25 PM EDT Height 147.3 cm (4' 10 ) 10/03/2024 1:25 PM EDT Body Mass Index 27.13 10/03/2024 1:25 PM EDT Plan of Treatment Upcoming Encounters Date Type Department Care Team (Late st Contact Info) Description 01/22/2025 3:30 PM EDT Office Visit Internal Medicine [facility] [address] [phone] Roe Pino MD [address] [address] 02/13/2025 10:00 AM EDT Consult Internal Medicine - [place] [address] [phone] Roe Pino MD [address] [address] Health Maintenance Due Date Last Done Comments [...] Cancer Screening 07/03/2023 07/03/20, 09/09/2018 COVID-19 Vaccine (1 2023-2 5 season) 2024 Diabetes: Blood Sugar Contro l Test (HGBA1C) 11/04/2024 05/06/2024, 05/06/2024 Influenza Vaccine (#1) 2025 05/20/2019 Diabetes: Annual GFR (Glomerular Filtration [...] Procedure Name Priority Date/Time Associated Diagnosis Comments MR BRAIN WO CONTRAST Routine 12/10/2024 7:22 PM EDT Alzheimer's disease, unspecified (CODE) ([facility] V24, [facility] V28) ANNUAL BMP BLOOD TEST Routine 05/06/2024 HEMOGLOBIN A1C Routine 05/06/2024 LIPID PANEL Routine 09/17/2023 [facility] SCREENING DIGITAL Routine 07/03/2021 8:03 AM EST Encounter for screening mammogram for malignant neoplasm of breast HEPATITIS C SCREENING Routine 05/20/2019 COLONOSCOPY Routine 07/25/2016 from Last 3 Months or Most Recently Relevant to Health Maintenance Results * MR Brain wo Contrast (12/10/2024 7:22 PM EDT) Anatomical Region Laterality Modality Head and Neck Magnetic Resonan ce 12/11/2024 10:0 3 AM EDT Impressions 12/11/2024 10:07 AM EDT No acute findings. Moderate diffuse cerebral volume loss with temporal lobe predominance. -------- FINAL REPORT -------- Dictated By: BETO PAYAN Dictated Date: 12/11/2024 10:03 ET Assigned Physician: BETO PAYAN Reviewed and Electronically Signed By: BETO PAYAN Signed Date: 12/11/2024 10:07 ET Workstation ID: [id number] Transcribed By: Self Edit Transcribed Date: 12/11/2024 10:03 ET Narrative 12/11/2024 10:07 AM EDT PROCEDURE: Brain MRI INDICATION: Alzheimer's disease TECHNIQUE: Multiplanar, multisequence MRI of the brain Without contrast. COMPARISON: Head CT 05/27/2024 FINDINGS: No acute infarct, mass effect, or intracranial hemorrhage. Sella and foramen magnum are normal. Mild chronic small vessel ischemic changes seen throughout the supratentorial white matter. Small old infarcts noted in the basal ganglia bilaterally. No T2 or susceptibility weighted signal abnormalities to suggest amyloid-related imaging abnormalities. Moderate diffuse cerebral volume loss, most pronounced in the temporal lobes. No hydrocephalus. Major intracranial arterial flow voids are normal. Sinuses are clear. Left mastoid effusion. Orbits and extracranial soft tissues are within normal limits. Procedure Note Beto Payan MD - 12/11/2024 PROCEDURE: Brain MRI INDICATION: Alzheimer's disease TECHNIQUE: Multiplanar, multisequence MRI of the brain Without contrast. COMPARISON: Head CT 05/27/2024 FINDINGS: No acute infarct, mass effect, or intracranial hemorrhage. Sella and foramen magnum are normal. Mild chronic small vessel ischemic changes seen throughout thesupratentorial white matter. Small old infarcts noted in the basalganglia bilaterally. No T2 or susceptibility weighted signal abnormalities to suggestamyloid-related imaging abnormalities. Moderate diffuse cerebral volume loss, most pronounced in the temporallobes. No hydrocephalus. Major intracranial arterial flow voids are normal. Sinuses are clear. Left mastoid effusion. Orbits and extracranial soft tissues are within normal limits. IMPRESSION: No acute findings. Moderate diffuse cerebral volume loss with temporal lobe predominance. -------- FINAL REPORT -------- Dictated By: BETO PAYAN Dictated Date: 12/11/2024 10:03 ET Assigned Physician: BETO PAYAN Reviewed and Electronically Signed By: BETO PAYAN Signed Date: 12/11/2024 10:07 ET Workstation ID: [id number] Transcribed By: Self Edit Transcribed Date: 12/11/2024 10:03 ET Jhoana Ocampo MD [facility] [place] PROCEDURES Final Result * Annual BMP Blood Test (05/06/2024) [facility] Annual BMP Blood Test Abstracted Historical Provider HEALTH MAINTENANCE Final Result * Hemoglobin A1c (05/06/2024) [facility] Hemoglobin A1C 5.8 <=6.5 % Blood Venous blood specimen / Unknown Historical Provider LAB BLOOD ORDERABLES Stefanie l Result * (ABNORMAL) Lipid panel (09/17/2023) [facility] LDL/HDL Ratio 5(A) 0 - 4 Triglycerides 292(A) 0 - 150 mg/dL Cholesterol 205(A) 0 - 200 mg/dL HDL 46 >=40 mg/dL LDL Cholesterol 101(A) 0 - 100 mg/dL Blood Venous blood specimen / Unknown us Historical Provider LAB BLOOD ORDERABLES Stefanie ash Result * [facility] SCREENING DIGITAL (07/03/2021 8:03 AM EST) Anatomical Region Laterality Modality Mammography 07/01/2021 3:46 PM EST Narrative 07/03/2021 8:03 AM EST [facility] Diagnostic Imaging Department [address] [place] [address] Patient: KAYLA STARKS /Age/Sex: 1955 - 66 - F Unit#: [id number] Location/Status: [facility] Mnemonic/Ordering Site: [facility] Ordering Physician: ROE PINO MD [facility] Screening Digital - 07/01/21 - 1620 INDICATION: SCREENING COMPARISON: [facility] mammograms dating back to 04/02/2014 TECHNIQUE: CC and MLO views of the breasts were obtained, using full field digital mammography with 3D tomosynthesis views in the MLO projection. Computer aided detection with the Grabhouse 7.2-H was employed. FINDINGS: The breasts contain scattered fibroglandular tissues. No suspicious masses, suspicious microcalcifications, or areas of architectural distortion are identified. There are no secondary signs of breast malignancy. Rare benign-appearing breast and vascular type calcifications are present bilaterally IMPRESSION: No specific mammographic evidence of breast malignancy. Lack of an imaging correlate should not deter or delay biopsy of a clinically significant palpable finding. BI-RADS - Category 2 - Benign finding 3342F, 7025F Annual screening mammography is recommended. Patient entered into a reminder system with a target date for the next mammogram. G0202 [id number]) , [id number] Dictating Physician: STEFANIA AGUILERA MD Electronically Signed by: STEFANIA AGUILERA MD Dic Date/Time: 07/03/21800 Sign date/Time: 07/03/21 08 Procedure Note Stefania Aguilera MD - 07/05/2022 [facility] Diagnostic Imaging Department [address] [place] [address] Patient: KAYLA STARKS /Age/Sex: 1955 - 66 - F Unit#: [id number] Location/Status: [facility] Mnemonic/Ordering Site: [facility] Ordering Physician: ROE PINO MD [facility] Screening Digital - 07/01/21 - 1620 INDICATION: SCREENING COMPARISON: [facility] mammograms dating back to 04/02/2014 TECHNIQUE: CC and MLO views of the breasts were obtained, using full field digital mammography with 3D tomosynthesis views in the MLO projection. Computer aided detection with the Grabhouse 7.2-H was employed. FINDINGS: The breasts contain [...] a target date for the next mammogram. [id number] / [id number]) , 44645 Dictating Physician: STEFANIA AGUILERA MD Electronically Signed [...] Most Recently Relevant to Health Maintenance Insurance [facility] Member Subscriber Plan / Payer (Ef fective 2020-Present) Name:Kayla Starks Relation to Subscriber:Self Name:Kayla Starks Payer ID:[id number] Group ID:[id number] Type:Not on file Address: [place] [address] [address] [address] Care Teams Consulting Marine Engineer Relationship Specialty Start Date End Date Roe Pino MD [address] [address] PCP - General Internal Medicine 08/06/24
--- OUTSIDE RECORDS SUMMARY | 2025-01-20 14:59 | XMS_ITS | Data Portability ---
Author Organization [email or web address] [facility], [facility] Address [address] [place] [address] Care Team Providers Care Senior Executive Compensation Analyst Name Role Phone HIM CCA OTHER Assessment [...] metoprolol 12.5mg once a day HCZ 25mg [email or web address] Not available 11/30/2023 12:45:57 02/29/2024 02/29/2024 As noted, we were called to see this patient regarding concerns of high blood pressure. Evaluation in the field was performed by my hide inspector colleague, as noted above, I provided real-time [...] any acute worsening or change in symptoms. [email or web address] Not available 02/29/2024 13:33:13 Plan of Treatment Reminders Order Date Submit Date Provider Last Modified By Organization Details Last Modified Time Details Appointments None recorded. Lab None recorded. Referral None recorded. Procedures None recorded. Surgeries None recorded. Imaging None recorded. Medication Orders losartan 25 mg tablet 2023 024 [place] [id number], [address], [place], [id number], 4 12:46:02 hydrochloro thiazide 25 mg tablet 2023 024 [facility][id number], [address], [place], [id number], 4 12:46:04 metoprolol tartrate 25 mg tablet 2023 024 [place] [id number], [address], [place], [id number], 4 12:46:03 Patient TargetsNo targets recorded. Patient InstructionsNo instructions recorded. Reason for Referral None Reported. Medical Equipment None Reported. Allergies Allergen ID Allergen Name Allergen Category Reaction Reaction Severity Criticality Documentation Date Start Date Code Code System Note Provider Name and Address Organization Details Recorded Time 0752 Product containin g penicilli n (product) medicatio n Not available Not available Not available 05/13/2024 77740 8001 SNOMED Not Available [employer] - production [...] Available UltiCare Pen Needle 32 gauge x 5/32 active Not Available Not Available Not Available Trulicity 1.5 mg/0.5 mL subcutaneous pen injector active Not Available Not Available Not Available Mounjaro 2.5 mg/0.5 mL subcutaneous pen injector active Not Available Not Available Not Available FreeStyle Rafita 3 Sensor device active Not Available Not Availa ble Not Available [employer] Rafita 3 Lacrosse active Not Available Not Available Not Available Vitals Date Recorded Oxygen saturation Oxygen saturation in Arterial blood by Pulse oximetry Body temperature Heart rate Respiratory rate Systolic And Diastolic Provider Name and Address Organization Details Last Updated DateTime 4 99 % 99 % 98 [degF] 79 /min 16 /min 200/100 mm[Hg] Not Available [employer] 4 13:42:16 Date Recorded Oxygen saturation Oxygen saturation in Arterial blood by Pulse oximetry Heart rate Respiratory rate Body temperature Body weight Systolic And Diastolic Provider Name and Address Organization Details Last Updated DateTime 4 98 % 98 % 62 /min 16 /min 98.2 [degF] 48116.0 24 g 168/80 mm[Hg] Not Available [employer] 4 13:28:22 Date Recorded Body temperature Body weight Respiratory rate Oxygen saturation Oxygen saturation in Arterial blood by Pulse oximetry Heart rate Systolic And Diastolic Provider Name and Address Organization Details Last Updated DateTime 4 98.2 [degF] 06364.9 6 g 16 /min 99 % 99 % 52 /min 180/88 mm[Hg] Not Available [employer] 4 13:28:36 Social History None recorded. Functional Status None recorded. Mental Status None recorded. Family History Nothing Reported. Medical History No medical history recorded. Gynecological HistoryNo gynecological history recorded. Obstetrics History GPAL:G 0 P 0 0 0 0 Past Encounters Encounter ID Performer Location Encounter Start Date Encounter Closed Date Diagnosis/Indication Diagnosis SNOMED-CT Code Diagnosis ICD10 Code Diagnosis Note [id number] Denise Cartwright MD [facility] [address] [place] [phone] 11/30/2023 12:34:20 12/01/2023 11:54:44 Essential hypertension 04270068 I10 Ms. Kayla Starks is a 68yoF [...] elevated [facility] . She currently [...] or twi. Her daughter is able to shrimp picker prescripti ons for her today. Medication dosing confirmed with medic over the phone on most recent medication bottles. Will send in bridge prescripti ons for the weekend. 5 days of her losartan, metoprolol , HCTZ sent in to [facility]. While the etiology of her nausea and vomiting overnight are unclear, she has no focal abdominal pain, feels well currently, and is able to tolerate PO intake. Discussed strict red flags with hide inspector including recommenda tion that if her nausea/vom iting returns or worsens she should present to the ED for further evaluation . Primary team, bridging prescripti ons sent in today for the next five days given hypertensi on on site of 200s/100s. Asymptomat ic currently but would benefit from close follow up. 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 c/o headache. No CP or SOB. Product/Device Technologist POC Test Results from Loren Andujar EKG (1) [13:42] EKG test performed. Reason for missing picture: See pics .................... .................... .................... .................... .................... .................... .................... . Product/Device Technologist Note From Con Loren: Community Product/Device Technologist Ramírez Andujar SC6 dispatched to a red [...] .................... . Disposition: Bethel Cartwright MD [address], [place], [address], Momail 11/30/2023 14:40:20 02/29/2024 text/html CRC Nurse Triage [...] a slight headache. Member agreeable to an [facility] visit for post medication BP check. .................... .................... .................... .................... .................... .................... .................... . Product/Device Technologist Note From Sheng Hawk: Pt VN called due to elevated BP this morning prior to taking BP meds. Pt given meds. Appt made for eval. Pt sts has slight headache but no other complaints. Pt denies cp sob fever dizziness or NVd. Baseline vitals assessed. Vitals stable. [facility] contacted and advised to monitor BP. Advised can take extra dose of losartin if BP remains elevated. Pt education on signs indicating the ER. Pt advised to follow up with pcp. Product/Device Technologist Allergies: Penicillin .................... .................... .................... .................... .................... .................... .................... . Disposition: Fulfilled Rene Vanessa MD [address] [facility],[address], [place], [phone], Momail 02/29/2024 13:36:04 04/03/2024 text/html CRC Nurse Triage Notes (Adam Brito): Chief Complaints: UTI/Pyelonephritis, Altered Mental Status PMH: Hypertension, Diabetes, COPD/Asthma, Severe Dementia Allergies: Penicillin Comments: Traffic Enumerator verified the member's name//address and phone number. Mbr's EDU Koroma from [employer] calling in visit request for mbr. Mbr reportedly having frequent urination and change in mental status for approx 3 days. Mbr is reportedly confused between day and night time. Education provided on the response time and the member was advised to monitor reported s/s and seek emergency treatment if needed -Taylor Brito RN Product/Device Technologist Organization Information for [employer] Legal Name: [facility] Address: [address] [place] [address], Legal Analyst: Alex Camejo MD [facility] No.: [id number] Product/Device Technologist POC Test Results from [employer] Urine Dipstick (13:18:16) Urine leukocytes: NR Urine nitrites: NR Urine urobilinogen: 0.2(3.5) URO Urine protein: 300(3.0) PRO Urine pH: 6 pH Urine blood: NR Urine specific gravity: 1.020 SG Urine ketones: NR Urine bilirubin: NR Urine glucose: NR .................... .................... .................... .................... .................... .................... .................... . Product/Device Technologist Note From Sheng Hawk: Pt daughter concerned for possible uti due to increased behavior changes/aggressive in the evening. Pt does have dementia. Pt denies painful urination, abdominal pain, flank pain or frequency fever, NVD, headache, dizziness. cp or sob. Baseline vitals assessed, abdomen benign, afebrile, urine dip unremarkable, urine clear. C contacted and advised to follow up with pcp. Education provided on signs indicating the ER. Product/Device Technologist Allergies: Penicillin .................... .................... .................... .................... .................... .................... .................... . Disposition: Fulfilled Jack Herrera MD [address] [facility],[address], [place], [phone], KIRSTEN - EMMANUEL BACK 04/03/2024 17:08:13 OBGyn Episode No OBEpisode recorded.
--- OUTSIDE RECORDS SUMMARY | 2025-01-20 14:59 | XMS_ITS | Clinical Summary ---
Author Organization [employer] [facility] Address [address] [place] [address] Care Team Providers Care Snuff Container Inspector Name Role Phone Roe Pino MD Primary [...] 1 - PCV) 2018 Influenza Vaccine (#1) 2025 RSV Adult > 60+ Yrs or Pregn ant (1 - 1-dose 75+ series) 2028 Hepatitis B Vaccines Aged Out No long er eligible based on patient's age to complete this topic RSV Ped < 20 months Aged Out No longe r eligible based on patient's age to complete this topic Care Teams Snuff Container Inspector Relationship Specialty Start Date End Date Roe Pino MD PCP - General Internal Medicine 05/14/24
== END 2025-01-20 14:29 | disposition home or self-care (01) ==
LOC: HO.HSM 14:09
PROVIDERS: PCP Internal Medicine; Visit Provider Psychiatry & Neurology Neurology
DX: G30.9 Alzheimer's disease, unspecified (principal); F02.80 Dementia in other diseases classified elsewhere, unspecified severity, without behavioral disturbance, psychotic disturbance, mood disturbance, and anxiety
CPT/HCPCS: 99214

== ENCOUNTER → 2025-01-20 14:08 | Outpatient (BNVA) | payer OTHER, SELFPAY | PROVIDERS: PCP Internal Medicine; Visit Provider Psychiatry & Neurology Neurology | DX: G30.9 Alzheimer's disease, unspecified (principal); F02.80 Dementia in other diseases classified elsewhere, unspecified severity, without behavioral disturbance, psychotic disturbance, mood disturbance, and anxiety | CPT/HCPCS: 99212 ==